=== PATIENT | female | born 1970 | race Caucasian/White ===

== ENCOUNTER 2023-08-03 12:20 | Outpatient (CLI) | payer MEDICARE | END 2023-08-03 12:21 | disposition home or self-care (01) | LOC: RT 12:20 | PROVIDERS: ATTEND Registered Nurse Psychiatric/Mental Health | DX: Z13.6 Encounter for screening for cardiovascular disorders (principal); F33.9 Major depressive disorder, recurrent, unspecified; Z79.899 Other long term (current) drug therapy | CPT/HCPCS: 93005 ==

== ENCOUNTER 2023-08-15 07:50 | Day surgery (SDC) | payer MEDICARE ==
[2023-08-15] MEDS: LACTATED RINGERS 1,000 ML IV ONE ×2 (08:12→10:10)
[2023-08-15] MEDS ORDERED: MIDAZOLAM 2 MG/2 ML VIAL ONE (08:35)
[2023-08-15] MEDS ORDERED: LIDOCAINE-MPF 2% 5 ML VIAL ONE (08:36)
[2023-08-15] MEDS ORDERED: PROPOFOL 200 MG/20 ML VIAL IVP ONE ×2 (08:36→09:42)
[2023-08-15] MEDS ORDERED: PROPOFOL 500 MG/50 ML 500 MG/50 ML VIAL ONE (08:37)
[2023-08-15] MEDS ORDERED: SODIUM CHLORIDE 0.9% 10 ML VIAL IVP ONE (09:09)
[2023-08-15] MEDS ORDERED: ATROPINE ABBOJECT 1 MG/10 ML SYRINGE IVP ONE (09:09)
--- NOTE | 2023-08-15 09:14 | ANESTHESIA ---
Pre-Anesthesia VS, & Labs - Diagnosis screening - Procedure colonoscopy Vital Signs: Temp Pulse Resp BP Pulse Ox O2 Flow Rate 36.0 C L 75 18 133/92 H 97 08/15/23 08:04 08/15/23 08:04 08/15/23 08:04 08/15/23 08:04 08/15/23 08:04 Height: 5 ft 2 in Weight (kg): 101.6 kg Body Mass Index: 40.9 BMI Classification: Morbidly Obese - NPO >8 hours - Is Patient ?: Waiver signed Home Medications and Allergies Home Medications: Ambulatory Orders Citalopram Hydrobromide [Citalopram HBr] 60 mg PO DAILY 08/10/23 clonazePAM [KlonoPIN] 0.5 mg PO DAILY PRN 08/10/23 Citalopram Hydrobromide [Citalopram HBr] 60 mg PO DAILY 08/10/23 clonazePAM [KlonoPIN] 0.5 mg PO DAILY PRN 08/10/23 Allergies/Adverse Reactions: Allergies Allergy/AdvReac Type Severity Reaction Status Date / Time amoxicillin Allergy Unknown Verified 08/15/23 08:07 pseudoephedrine Allergy histamine Verified 08/15/23 08:06 [From Sudafed] reaction Sulfa (Sulfonamide Allergy Hives Verified 08/15/23 08:06 Antibiotics) Anes History & Medical History - Anesthetic History Anesthesia Complications: reports: No previous complications Family history of Anesthesia Complications: Denies Family history of Malignant Hyperthermia: Denies - Medical History Cardiovascular: reports: Other (POTS) Pulmonary: reports: None Gastrointestinal: reports: Other Urinary: reports: None Neuro: reports: Migraines Musculoskeletal: reports: None Skin: reports: Eczema, Psoriasis Smoking Status: Never smoker Psychosocial: reports: Anxiety, Cannabis History of Cancer?: No - Surgical History General: reports: Appendectomy Exam General: Alert, Oriented x3, Cooperative Dental: WNL Mouth Openin Fingerbreadth Neck Mobility: Reduced Mallampati classification: III Thyromental Distance: less than 4 cm Respiratory: Lungs clear Cardiovascular: Regular rate Plan Anesthesia Type: General, Total IV Consent for Procedure(s) Verified and Reviewed: Yes Code Status: Attempt Resuscitation ASA classification: 3-Severe systemic disease Is this case an emergency?: No
[2023-08-15 10:33] VITALS: BP 117/74; O2SAT 94
--- NOTE | 2023-08-15 12:34 | ANESTHESIA POST OP EVALUATION ---
Anesthesia Post Eval - Post Anesthesia Eval Vitals: Last Vital Signs Temp 36.2 C L 08/15/23 10:10 Pulse 74 08/15/23 10:30 Resp 18 08/15/23 10:30 BP 117/74 08/15/23 10:30 Pulse Ox 94 08/15/23 10:30 O2 Flow Rate CV Function Including HR & BP: Stable Pain Control: Satisfactory Nausea & Vomiting: Negative Mental Status: Baseline Respiratory Status: Airway Patent Hydration Status: Satisfactory Anesthesia Complications: None
== END 2023-08-15 07:51 | disposition home or self-care (01) ==
LOC: SDS 07:50
PROVIDERS: ATTEND Surgery
PROC: 0DBM8ZZ Excision of Descending Colon, Via Natural or Artificial Opening Endoscopic (ICD-10-PCS; 2023-08-15)
PROC: 0DBB8ZX Excision of Ileum, Via Natural or Artificial Opening Endoscopic, Diagnostic (ICD-10-PCS; 2023-08-15)
PROC: 0DBK8ZZ Excision of Ascending Colon, Via Natural or Artificial Opening Endoscopic (ICD-10-PCS; principal; 2023-08-15 08:30)
DX: Z12.11 Encounter for screening for malignant neoplasm of colon (principal); D12.2 Benign neoplasm of ascending colon; D12.4 Benign neoplasm of descending colon; K63.5 Polyp of colon; G90.A Postural orthostatic tachycardia syndrome [POTS]; F41.0 Panic disorder [episodic paroxysmal anxiety]; E66.01 Morbid (severe) obesity due to excess calories; Z68.41 Body mass index [BMI] 40.0-44.9, adult; I49.9 Cardiac arrhythmia, unspecified
CPT/HCPCS: 45380; 45385; J7120